=== PATIENT | male | born 1970 | race Caucasian/White ===

== ENCOUNTER 2019-01-21 20:59 | Emergency (ER) | payer BC ==
[2019-01-21] MEDS ORDERED: DEXAMETHASONE SOD PHOSPHATE 10 MG/ML 1 ML VIAL IM STA (22:23)
[2019-01-21 23:06] VITALS: RESP 16
--- NOTE | 2019-01-21 23:55 | CT ---
EXAM: CT Neck Without Intravenous Contrast CLINICAL HISTORY: : tonsillar swelling TECHNIQUE: Axial computed tomography images of the neck without intravenous contrast. CTDI is 9.9 mGy and DLP is 350 mGy-cm. This CT exam was performed using one or more of the following dose reduction techniques: automated exposure control, adjustment of the mA and/or kV according to patient size, and/or use of iterative reconstruction technique. COMPARISON: No relevant prior studies available. FINDINGS: Oropharynx: Left-sided tonsillar enlargement with suspected area of low attenuation in the left tonsillar pillar dental hardware obscures the area of interest Hypopharynx: Unremarkable. Larynx: Unremarkable. Normal epiglottis. Trachea: Unremarkable. Retropharyngeal space: Unremarkable. Submandibular/parotid glands: Unremarkable. Glands are normal in size. Thyroid: Unremarkable. No enlarged or calcified nodules. Bones/joints: No acute fracture. Soft tissues: Unremarkable. Vasculature: No acute findings. Lymph nodes: Unremarkable. No lymphadenopathy. Lung apices: Unremarkable as visualized. IMPRESSION: Enlargement of the tonsillar pillars left greater than right area of low attenuation in the left tonsillar pillars is suspected but the area of interest is obscured by dental hardware this may represent a peritonsillar abscess. Improved tissue contrast and abscess visualization can be obtained with intravenous contrast media
[2019-01-22] MEDS ORDERED: AMOXIC-POT CLAV 875-125MG 1 EACH TAB PO STA (00:12)
--- NOTE | 2019-01-22 00:22 | ED ---
ENT HPI - General Chief complaint: ENT Stated complaint: Throat problems, hasnt ate or drank Time Seen by Provider: 01/21/19 22:08 Source: patient Mode of arrival: ambulatory Limitations: no limitations - History of Present Illness Initial comments: Patient is a 48 year old male presents emergency Department with a sore throat. Patient states the pain started approximately 2 days ago and yesterday he visited Dr. Darling who examined him and prescribed amoxicillin for 10 days. Patient reports taking 2 doses of amoxicillin minimal improvement. Patient reports that he is able to keep fluids down but has a difficult time swallowing. Patient denies fever, drooling, nausea, vomiting or diarrhea. Patient denies cough, rhinorrhea, sinus congestion, otalgia or headaches. Patient reports that his voice does not sound same. Patient reports the discomfort is mostly localized to the left side and he is able to palpated on the left side of his neck. Patient states that he does have seasonal ALLERGIES. - Related Data Home Medications Medication Instructions Recorded Confirmed Amoxicillin 500 mg PO TID 01/21/19 01/21/19 Previous Rx's Medication Instructions Recorded Amoxicillin/Potassium Clav 1 tab PO Q12HR #20 tab 01/22/19 [Augmentin 875-125 Tablet] Allergies Allergy/AdvReac Type Severity Reaction Status Date / Time No Known Allergies Allergy Verified 01/21/19 22:27 Review of Systems ROS Statement: Those systems with pertinent positive or pertinent negative responses have been documented in the HPI. ROS Other: All systems not noted in ROS Statement are negative. Past Medical History Past Medical History: No Reported History History of Any Multi-Drug Resistant Organisms: None Reported Past Surgical History: Appendectomy, Hernia Repair, Orthopedic Surgery Additional Past Surgical History / Comment(s): left arm surgery, Past Psychological History: No Psychological Hx Reported Smoking Status: Former smoker Past Alcohol Use History: Rare Past Drug Use History: None Reported General Exam Limitations: no limitations General appearance: alert, in no apparent distress Head exam: Present: atraumatic, normocephalic, normal inspection Eye exam: Present: normal appearance, PERRL, EOMI Pupils: Present: normal accommodation ENT exam: Present: normal oropharynx (Bilateral enlarged and erythematous tonsils. Left tonsil larger than right.). Absent: other (Tonsillar Exudates) Neck exam: Present: full ROM, lymphadenopathy (Left submandibular) Respiratory exam: Present: normal lung sounds bilaterally Cardiovascular Exam: Present: regular rate, normal rhythm, normal heart sounds Extremities exam: Present: normal inspection, full ROM Back exam: Present: normal inspection, full ROM Neurological exam: Present: alert, oriented X3 Psychiatric exam: Present: normal affect, normal mood Skin exam: Present: warm, intact, normal color Course Vital Signs 01/21/19 01/21/19 01/22/19 21:33 23:04 00:25 Temperature 99.3 F 98.0 F Pulse Rate 100 82 76 Respiratory 18 16 16 Rate Blood Pressure 130/85 143/91 136/82 O2 Sat by Pulse 96 98 98 Oximetry Medical Decision Making - Medical Decision Making Patient is a 48-year-old male presents emergency Department with a sore throat. Rapid strep is negative. Heterophile obtained but never processed CT of neck soft tissue is positive for enlarged tonsils bilaterally but the view was obstructed due to previous dental work. Patient was given 1 Augmentin here and will be discharged with a ten-day course of Augmentin. Patient also given Decadron to decrease tonsillar inflammation. On repeat evaluation patient reports that he feels better and is able to swallow slightly better. Patient advised to continue taking the prescribed medication. Patient advised to follow with primary care. Patient advised to return to emergency department if symptoms worsen. Case discussed with physician. - Lab Data Lab Results 01/21/19 Range/Units 23:00 Group A Strep Rapid Negative (Negative) Disposition Clinical Impression: Sore throat Disposition: HOME SELF-CARE Condition: Stable Instructions (If sedation given, give patient instructions): Strep Throat (DC) Additional Instructions: Please take prescribed medication as directed. Please follow-up with primary care. Please return to emergency department if symptoms worsen. Prescriptions: Amoxicillin/Potassium Clav [Augmentin 875-125 Tablet] 1 tab PO Q12HR #20 tab Is patient prescribed a controlled substance at d/c from ED?: No Referrals: Silvestre Farmer DO [Primary Care Provider] - 1-2 days Time of Disposition: 00:22
[2019-01-22 00:27] VITALS: BP 136/82; PULSE 76; TEMP 98
== END 2019-01-22 00:25 | disposition home or self-care (01) ==
LOC: EC 20:59
DX: J02.9 Acute pharyngitis, unspecified (principal); Z87.891 Personal history of nicotine dependence
CPT/HCPCS: 87081; 87430; 70490; 99283; 96372; J1100

== ENCOUNTER → 2021-09-06 | Outpatient (CLI) | payer BC ==
--- NOTE | 2021-09-06 09:32 | ECHOF ---
Referral Reason:R07.89 atypical chest pain MEASUREMENTS -------- HEIGHT: 172.7 cm WEIGHT: 106.6 kg BP: RVIDd: 3.5 cm (< 3.3) IVSd: 1.2 cm (0.6 - 1.1) LVIDd: 5.8 cm (3.9 - 5.3) LVPWd: 0.9 cm (0.6 - 1.1) IVSs: 1.4 cm LVIDs: 4.6 cm LVPWs: 1.5 cm LAESV Index (A-L): 24.88 ml/m Ao Diam: 3.8 cm (2.0 - 3.7) AV Cusp: 1.5 cm (1.5 - 2.6) MV EXCURSION: 14.924 mm (> 18.000) MV EF SLOPE: 53 mm/s (70 - 150) EPSS: 0.5 cm MV E Nagi: 0.33 m/s MV DecT: 241 ms MV A Nagi: 0.45 m/s MV E/A Ratio: 0.73 RAP: 5.00 mmHg RVSP: 11.59 mmHg FINDINGS -------- Sinus rhythm. This was a technically adequate study. LV size, wall thickness and systolic function are normal, with an EF greater than 55%. The left colin tricular size is normal. The right ventricle is normal in size. Normal LA size by volume 22+/-6 ml/m2. The right atrial size is normal. The aortic valve is trileaflet, and appears structurally normal. No aortic stenosis or regurgitation. Mild mitral regurgitation is present. Mild tricuspid regurgitation present. Right ventricular systolic pressure is normal at < 35 mmHg. There is no pulmonic regurgitation present. There is no pericardial effusion. CONCLUSIONS -------- 1. LV size, wall thickness and systolic function are normal, with an EF greater than 55%. 2. The left ventricular size is normal. 3. The right ventricle is normal in size. 4. Normal LA size by volume 22+/-6 ml/m2. 5. The right atrial size is normal. 6. The aortic valve is trileaflet, and appears structurally normal. No aortic stenosis or regurgitati on. 7. Mild mitral regurgitation is present. 8. Mild tricuspid regurgitation present. 9. There is no pericardial effusion. VIDEOTAPE OPERATOR: Linette Desouza RDCS
--- NOTE | 2021-09-06 14:09 | EST ---
EXERCISE STRESS AGE: 51 SEX: M HT: 5'8"` WT: 235 lbs. PROTOCOL: Fadi STAGE: 3 DURATION OF EXERCISE: 9:00 HEART RATE REST: 81 BLOOD PRESSURE REST: 131/96 MAXIMUM HEART RATE ACHIEVED: 144 MAXIMUM BLOOD PRESSURE: 199/90 85% MPHR: 142 100% MPHR: 167 METS: 10.3 INDICATIONS: Atypical chest pain CLINICAL INFORMATION: STRESS DATA: Heart rate 81, pressure 131/96 mmHg. Baseline EKG showed sinus mechanism. The patient exercised on the treadmill according to Fadi protocol for a total of 9 minutes and achieved 10.3 METS. Max heart rate was 144, which is about 86% of maximum predicted heart rate, with maximum blood pressure of 199/90 mmHg. Clinically the patient did not have any symptoms. The EKG did not show any significant ST or T-wave abnormalities concerning for ischemia. CONCLUSION: 1. Excellent exercise tolerance. 2. Normal EKG in response to exercise. 3. Essentially normal exercise treadmill stress test for the patient. MMODL / IJN: [id number] /
== END | disposition home or self-care (01) ==
LOC: RADECHMAIN 08:01
PROVIDERS: ATTEND Family Medicine
DX: I08.1 Rheumatic disorders of both mitral and tricuspid valves (principal)
CPT/HCPCS: 93017; 93306